=== PATIENT | female | born 1985 | race Caucasian/White ===

== ENCOUNTER → 2018-04-06 13:04 | Outpatient (CLI) | payer OTHER, SELFPAY ==
[2018-04-06 14:15] LABS: Absolute Lymphocyte Count 1.84 X10^3/ul (0.83-4.51); Basophil# 0.03 X10^3/uL; Basophil% 0.5 % (0-1); Eosinophil# 0.05 X10^3/uL; Eosinophils% 0.8 % (0-5); Hematocrit 38.4 % (37-47); Hemoglobin 12.8 g/dl (12.0-15.0); Lymphocyte # 1.84 X10^3/ul (4.0); Lymphocyte % 29.2 % (19-41); Mean Corp Hgb Conc 33.3 g/gl (32-36); Mean Corpuscular Hgb 30.4 pg (27.0-32.0); Mean Corpuscular Volume 91.2 fL (81-99); Mean Platelet Vol. 10.7 fl (6.2-12.0); Monocyte# 0.41 X10^3/uL; Monocyte% 6.5 % (0-10); Neutrophil # 3.98 X10^3/uL (2.7-7.7); Platelet Count 267 K/mm3 (150-450); RBC Distribution Width CV 12.8 % (11.6-14.6); RBC Distribution Width SD 42.6 fl (35.1-43.9); Red Blood Count 4.21 M/mm3 (4.2-5.4); White Blood Count 6.3 K/mm3 (4.4-11.0)
[2018-04-06 14:16] LABS: POSITIVE COUNT NO; POSITIVE DIFFERENTIAL NO; POSITIVE MORPHOLOGY NO
[2018-04-06 14:41] LABS: ALB/GLOB Ratio 1.3 RATIO (0.9-2.4); AST(SGOT) 13 U/L (15-37); Alanine Aminotransfer ALT/SGPT 17 U/L (13-56); Albumin, Serum 4.3 g/dL (3.2-5.0); Alkaline Phosphatase 48 U/L (45-117); Anion Gap 6 (5-15); BUN 9 mg/dL (7-18); BUN/Creat Ratio 11.4 RATIO (10-20); Calcium,Total 8.9 mg/dL (8.5-10.1); Chloride 107 mmol/L (98-107); Creatinine, Serum 0.79 mg/dL (0.55-1.02); EST Glomerular Filtration Rate 88 mL/min (>60); Est Glom Filt Rate - Afr Amer 107 mL/min (>60); Estradiol 51.4 pg/mL; Follicle Stimulating Hormone 5.8 mIU/mL; Globulin 3.2 g/dL (2.2-4.2); Glucose 89 mg/dL (74-106); Luteinizing Hormone 5.3 mIU/mL; Potassium 3.3 mmol/L (3.5-5.1); Prolactin 21.8 ng/mL; Protein, Total 7.5 g/dL (6.4-8.2); Sodium Level 140 mmol/L (136-145); T4 Free Direct 1.01 ng/dL (0.76-1.46); Thyroid Stim Hormone (TSH) 1.33 uIU/mL (0.358-3.74)
[2018-04-06 14:51] LABS: T3 Total - Triiodothyronine 0.92 ng/mL (0.6-1.81); Vitamin B12 897 pg/mL (211-911)
[2018-04-08 12:00] LABS: EBV Acute VCA IgM < 36.0 U/mL (0.0-35.9); EBV Early Antigen IgG <9.0 U/mL (0.0-8.9); EBV Nuclear Antigen IgG < 18.0 U/mL (0.0-17.9); EBV-VCA IgG < 18.0 U/mL (0.0-17.9)
== END ==
PROVIDERS: Family Provider Family Medicine; PCP Family Medicine; Visit Provider Family Medicine
DX: D35.2 Benign neoplasm of pituitary gland (principal); E55.9 Vitamin D deficiency, unspecified; E53.8 Deficiency of other specified B group vitamins; R53.83 Other fatigue; M79.1 Myalgia; M25.50 Pain in unspecified joint
CPT/HCPCS: 36415; 80053; 82306; 82607; 82670; 83001; 83002; 84144; 84146; 84439; 84443; 84480; 85025; 86663; 86664; 86665

== ENCOUNTER → 2018-04-09 07:44 | Outpatient (CLI) | payer OTHER, SELFPAY | PROVIDERS: Family Provider Family Medicine; PCP Family Medicine; Visit Provider Family Medicine | DX: E01.0 Iodine-deficiency related diffuse (endemic) goiter (principal) | CPT/HCPCS: 76536 ==

== ENCOUNTER → 2018-05-25 13:04 | Outpatient (CLI) | payer OTHER, SELFPAY ==
[2018-05-25 14:01] LABS: Erythrocyte Sedimentation Rate < 1 mm/hr (0-20)
[2018-05-25 14:34] LABS: CRP < 2.90 mg/L (0.0-3.0); Ferritin 59 ng/mL (8-252); Iron 86 ug/dL (50-170)
[2018-05-26 16:08] LABS: Endomysial Antibody IgA Negative (Negative)
[2018-05-27 11:35] LABS: ANTINUCLEAR ANTIBODIES DIRECT Negative (Negative)
[2018-05-27 11:50] LABS: Immunoglobulin A 176 mg/dL (87-352); t-Transglutaminase IgA 3 U/mL (0-3)
== END ==
PROVIDERS: Family Provider Family Medicine; PCP Family Medicine; Referring Provider Family Medicine; Visit Provider Family Medicine
DX: D64.9 Anemia, unspecified (principal); M25.50 Pain in unspecified joint; R10.9 Unspecified abdominal pain; M79.10 Myalgia, unspecified site
CPT/HCPCS: 36415; 82728; 82784; 83516; 83540; 85652; 86038; 86140; 86225; 86235; 86255

== ENCOUNTER → 2019-07-27 10:43 | Outpatient (CLI) | payer OTHER, SELFPAY ==
[2019-07-27 13:40] LABS: Absolute Lymphocyte Count 1.68 X10^3/uL (0.83-4.51); Absolute Neutrophil Count 4.4 X10^3/uL (2.0-7.7); Basophil# 0.07 X10^3/uL; Basophil% 1.1 % (0-1); Eosinophil# 0.08 X10^3/uL; Eosinophils% 1.2 % (0-5); Hematocrit 42.4 % (37-47); Hemoglobin 13.8 g/dL (12.0-15.0); Lymphocyte # 1.68 X10^3/ul (4.0); Lymphocyte % 25.6 % (19-41); Mean Corp Hgb Conc 32.5 g/dL (32-36); Mean Corpuscular Hgb 30.3 pg (27.0-32.0); Mean Corpuscular Volume 93.2 fL (81-99); Mean Platelet Vol. 10.3 fl (6.2-12.0); Monocyte# 0.38 X10^3/uL; Monocyte% 5.8 % (0-10); NRBC Flagged by Analyzer 0 % (0-5); Neutrophil # 4.36 X10^3/uL (2.7-7.7); Neutrophil % 66.3 % (47-70); Platelet Count 277 K/mm3 (150-450); RBC Distribution Width CV 12.4 % (11.6-14.6); RBC Distribution Width SD 42.6 fl (35.1-43.9); Red Blood Count 4.55 M/mm3 (4.2-5.4); White Blood Count 6.6 K/mm3 (4.4-11.0)
[2019-07-27 13:56] LABS: ALB/GLOB Ratio 1.3 RATIO (0.9-2.4); AST(SGOT) 15 U/L (15-37); Alanine Aminotransfer ALT/SGPT 18 U/L (13-56); Albumin, Serum 4.4 g/dL (3.2-5.0); Alkaline Phosphatase 57 U/L (45-117); Anion Gap 7 (5-15); BUN 9 mg/dL (7-18); BUN/Creat Ratio 11.8 RATIO (10-20); Calcium,Total 9.1 mg/dL (8.5-10.1); Chloride 108 mmol/L (98-107); Creatinine, Serum 0.76 mg/dL (0.55-1.02); EST Glomerular Filtration Rate 91 mL/min (>60); Est Glom Filt Rate - Afr Amer 110 mL/min (>60); Ferritin 49 ng/mL (8-252); Globulin 3.3 g/dL (2.2-4.2); Glucose 84 mg/dL (74-106); Potassium 3.8 mmol/L (3.5-5.1); Protein, Total 7.7 g/dL (6.4-8.2); Sodium Level 140 mmol/L (136-145)
[2019-07-27 14:47] LABS: Vitamin D,25 Hydroxy 42.1 ng/mL (29.95-100.01)
[2019-07-28 05:07] LABS: HEPATITIS B SURFACE AG Negative (Negative); Hepatitis A AB, Total Negative (Negative); Hepatitis A IgM Antibody Negative (Negative); Hepatitis B Core AB IgM Negative (Negative); Hepatitis B Core Ab Total Negative (Negative); Hepatitis C Ab <0.1 s/co ratio (0.0-0.9)
[2019-07-28 12:09] LABS: Hep B Surface Antibodies Reactive (.); Thyroid Peroxidase AB < 6 IU/mL (0-34)
== END ==
PROVIDERS: Family Provider Family Medicine; PCP Family Medicine; Referring Provider Dermatology Pediatric Dermatology; Visit Provider Dermatology Pediatric Dermatology
DX: L43.8 Other lichen planus (principal); L82.1 Other seborrheic keratosis; L81.4 Other melanin hyperpigmentation; D18.01 Hemangioma of skin and subcutaneous tissue; D22.5 Melanocytic nevi of trunk; L57.8 Other skin changes due to chronic exposure to nonionizing radiation; D22.71 Melanocytic nevi of right lower limb, including hip; L66.8 Other cicatricial alopecia; Z71.89 Other specified counseling
CPT/HCPCS: 36415; 80053; 82306; 82728; 85025; 86038; 86376; 86704; 86705; 86706; 86708; 86709; 86803; 87340

== ENCOUNTER → 2019-09-06 12:59 | Outpatient (CLI) | payer OTHER, SELFPAY | PROVIDERS: Family Provider Family Medicine; PCP Family Medicine; Referring Provider Dermatology Pediatric Dermatology; Visit Provider Dermatology Pediatric Dermatology | DX: R76.0 Raised antibody titer (principal) | CPT/HCPCS: 36415; 86038 ==

== ENCOUNTER → 2019-09-23 | Outpatient (CLI) | payer OTHER, SELFPAY ==
[2019-09-23 15:58] LABS: CRP < 2.90 mg/L (0.0-3.0)
[2019-09-23 16:21] LABS: Erythrocyte Sedimentation Rate < 1 mm/hr (0-20)
[2019-09-26 15:12] LABS: CCP IgG Antibodies 10 units (0-19)
[2019-09-27 20:08] LABS: SJOGREN'S Anti-SS-A test < 0.2 AI (0.0-0.9)
[2019-09-27 21:06] LABS: SJOGREN'S Anti-SS-B test < 0.2 AI (0.0-0.9)
== END | disposition home or self-care (01) ==
LOC: BFHLAB 13:05
PROVIDERS: PCP Family Medicine; Visit Provider Family Medicine
DX: M79.10 Myalgia, unspecified site (principal); R76.8 Other specified abnormal immunological findings in serum; M25.50 Pain in unspecified joint
CPT/HCPCS: 36415; 85652; 86140; 86200; 86235

== ENCOUNTER → 2019-11-26 11:13 | Outpatient (CLI) | payer OTHER, SELFPAY ==
--- NOTE | 2019-11-26 11:20 | RAD_ITS ---
STUDY: X-RAY - CERVICAL SPINE REASON FOR EXAM: Female, 34 years old. Neck pain, discomfort, arm heaviness for several months TECHNIQUE: 5 view(s) of the cervical spine were obtained including oblique views. COMPARISON: None FINDINGS: Normal anterior atlantoaxial articulation. Normal odontoid process. There is straightening of the normal cervical lordosis. Normal vertebral bodies and endplates. Normal disc space heights. Normal visualized intervertebral neuroforamina. The soft tissue structures are unremarkable. RAD/Cerv Spine 4 or 5 Views IMPRESSION: Straightening of the normal cervical lordosis. Electronically Signed: Yahir Douglas, at 13:22 EDT , Service support ,
[2019-11-26 12:01] LABS: Bacteria 0 SEEN /hpf (None Seen); Mucous, Urine 0 SEEN /hpf (<or=2+); Red Blood Cells-Urine 0 SEEN /hpf (0-5); White Blood Cells 0 SEEN /hpf (0-5)
[2019-11-26 15:23] LABS: Color, Urine Yellow (Yellow); Glucose, Dipstick Normal (Normal); Ketone-Dipstick Negative (Negative); Leukocyte Esterase-Dipstick 100 /ul (Negative); Nitrite-Dipstick Negative (Negative); Occult Blood-Urine Negative /ul (Negative); Protein-Dipstick Negative (Negative); Specific Gravity, Urine 1.005 (1.002-1.030); Urine Bilirubin Dipstick Negative (Negative); Urine Clarity Clear (Clear); Urine Urobilinogen Normal (Normal)
[2019-11-26 15:33] LABS: Vitamin B12 818 pg/mL (211-911); Vitamin D,25 Hydroxy 46.1 ng/mL
[2019-11-26 15:50] LABS: Bilirubin, Direct 0.24 mg/dL (0.00-0.30); CPK Total, Creatine Kinase 60 U/L (26-192); CRP < 2.90 mg/L (0.0-3.0); Rheumatoid Factor < 10.0 IU/mL (<15); Thyroid Stim Hormone (TSH) 2.01 uIU/mL (0.358-3.74); Uric Acid 3.2 mg/dL (2.6-6.0)
[2019-11-26 16:26] LABS: Squamous Epithelial Cells - UA 0-5 SEEN /hpf (5-10)
[2019-11-30 12:06] LABS: Vitamin D 1,25-Dihydroxy 68.2 pg/mL (19.9-79.3)
[2019-11-30 17:36] LABS: ANTINUCLEAR ANTIBODIES DIRECT Negative (Negative); Anti-Mitochondrial AB <20.0 Units (0.0-20.0)
== END ==
PROVIDERS: PCP Family Medicine; Referring Provider Internal Medicine Rheumatology; Visit Provider Internal Medicine Rheumatology
DX: M54.2 Cervicalgia (principal); R00.2 Palpitations; R00.0 Tachycardia, unspecified; M89.9 Disorder of bone, unspecified; M94.9 Disorder of cartilage, unspecified; N39.0 Urinary tract infection, site not specified; L65.9 Nonscarring hair loss, unspecified; R53.83 Other fatigue; F41.9 Anxiety disorder, unspecified; R17 Unspecified jaundice; R76.8 Other specified abnormal immunological findings in serum; Z79.1 Long term (current) use of non-steroidal anti-inflammatories (NSAID); Z79.2 Long term (current) use of antibiotics; Z86.69 Personal history of other diseases of the nervous system and sense organs
CPT/HCPCS: 36415; 72050; 81001; 82164; 82247; 82248; 82306; 82384; 82550; 82607; 82652; 82747; 82784; 83516; 84165; 84425; 84443; 84550; 85014; 86038; 86140; 86160; 86200; 86225; 86235; 86334; 86431; 86617; 86644; 86645; 86664; 86665; 86747; 87086

== ENCOUNTER → 2019-12-01 | Outpatient (CLI) | payer OTHER, SELFPAY ==
[2019-12-03 16:07] LABS: Folate, RBC (Hct) Test 37.9 % (34.0-46.6)
[2019-12-04 14:39] LABS: Folates, RBC Test 1103 ng/mL (>498)
== END | disposition home or self-care (01) ==
LOC: MTLAB 14:10
PROVIDERS: PCP Family Medicine; Referring Provider Internal Medicine Rheumatology; Visit Provider Internal Medicine Rheumatology
DX: R00.2 Palpitations (principal); R00.0 Tachycardia, unspecified; M54.2 Cervicalgia; M89.9 Disorder of bone, unspecified; M94.9 Disorder of cartilage, unspecified; N39.0 Urinary tract infection, site not specified; L65.9 Nonscarring hair loss, unspecified; R53.83 Other fatigue; F41.9 Anxiety disorder, unspecified; R17 Unspecified jaundice; R76.8 Other specified abnormal immunological findings in serum; Z86.69 Personal history of other diseases of the nervous system and sense organs; Z79.2 Long term (current) use of antibiotics; Z79.1 Long term (current) use of non-steroidal anti-inflammatories (NSAID)
CPT/HCPCS: 82747; 85014

== ENCOUNTER → 2019-12-06 | Outpatient (CLI) | payer OTHER, SELFPAY ==
[2019-12-08 03:06] LABS: Dopamine, UR 134 ug/L (Undefined); Epinephrine, 24Ur 7 ug/24 hr (0-20); Epinephrine, Ur 3 ug/L (Undefined); Norepinephrine, 24Ur 70 ug/24 hr (0-135); Norepinephrine, Ur 32 ug/L (Undefined)
[2019-12-08 03:50] LABS: Dopamine, 24Ur 295 ug/24 hr (0-510)
[2019-12-08 23:16] LABS: 5-HIAA, 24UR 3.8; 5-HIAA, UR 1.6
== END | disposition home or self-care (01) ==
LOC: MTLAB 08:46
PROVIDERS: PCP Family Medicine; Referring Provider Internal Medicine Rheumatology; Visit Provider Internal Medicine Rheumatology
DX: N39.0 Urinary tract infection, site not specified (principal); R00.2 Palpitations; R00.0 Tachycardia, unspecified; M54.2 Cervicalgia; M89.9 Disorder of bone, unspecified; M94.9 Disorder of cartilage, unspecified; L65.9 Nonscarring hair loss, unspecified; R53.83 Other fatigue; F41.9 Anxiety disorder, unspecified; R17 Unspecified jaundice; R76.8 Other specified abnormal immunological findings in serum; Z86.69 Personal history of other diseases of the nervous system and sense organs; Z79.2 Long term (current) use of antibiotics; Z79.1 Long term (current) use of non-steroidal anti-inflammatories (NSAID)
CPT/HCPCS: 81050; 82384; 83497; 84120

== ENCOUNTER → 2019-12-09 | Outpatient (CLI) | payer OTHER, SELFPAY ==
--- NOTE | 2019-12-09 08:26 | US_ITS ---
STUDY: ABDOMINAL ULTRASOUND - RIGHT UPPER QUADRANT REASON FOR VISIT: Female, 34 years old abnl labs TECHNIQUE: Ultrasound evaluation of the right upper quadrant was performed with real-time and static haq-scale imaging. TECHNICAL QUALITY: Adequate. COMPARISON: None. FINDINGS: Liver: The liver measures 13.3 cm. There is normal echogenicity of the liver. The bile ducts are within normal limits. There is hepatic color flow. The direction of portal flow is hepatopetal. There is no demonstrated mass lesion. Gallbladder: Normal distended gallbladder. The gallbladder wall measures 2.1 mm. There is a negative sonographic Ryan''s sign. There is no pericholecystic fluid. There are no gallstones. Common Bile Duct (C.B.D.): The common bile duct measures 2.2 mm. Pancreas: Normal size of the head, body and tail of the pancreas. There is normal echogenicity of the pancreas. There is no demonstrated pancreatic mass or cyst. Right Kidney: Normal size of the right kidney. The right kidney measures 10 x 5 x 3.7 cm. Normal renal cortex. The right cortex measures 1.4 cm. There is no demonstrated renal mass or cyst. There is no right hydronephrosis. US/Abdomen Limited IMPRESSION: Normal right upper quadrant ultrasound examination. Electronically Signed: Li Keating, at 14:45 EDT Tel , Service support ,
== END | disposition home or self-care (01) ==
LOC: US 08:23
PROVIDERS: PCP Family Medicine; Referring Provider Internal Medicine Rheumatology; Visit Provider Internal Medicine Rheumatology
DX: R17 Unspecified jaundice (principal); R76.8 Other specified abnormal immunological findings in serum; R00.2 Palpitations; R00.0 Tachycardia, unspecified; M54.2 Cervicalgia; M89.9 Disorder of bone, unspecified; M94.9 Disorder of cartilage, unspecified; N39.0 Urinary tract infection, site not specified; L65.9 Nonscarring hair loss, unspecified; R53.83 Other fatigue; F41.9 Anxiety disorder, unspecified; Z86.69 Personal history of other diseases of the nervous system and sense organs; Z79.2 Long term (current) use of antibiotics; Z79.1 Long term (current) use of non-steroidal anti-inflammatories (NSAID)
CPT/HCPCS: 76705

== ENCOUNTER → 2020-02-10 | Outpatient (CLI) | payer OTHER, SELFPAY ==
[2020-01-07 11:10] VITALS: BMI 20.9
--- NOTE | 2020-02-10 09:28 | ECHOD_ITS ---
Reason For Study: PALPITATIONS Procedure This was a 2D Doppler, Color Flow transthoracic echocardiogram. Exam performed in department. Left Ventricle Normal LV size. Left ventricular systolic function is normal. The estimated ejection fraction is 60 %. Normal diastology for age. No regional wall motion abnormalities noted. Atria Normal left atrium. Normal right atrium. Mitral Valve Equivocal mitral valve prolapse. Tricuspid Valve Normal tricuspid valve. Mild (1+) tricuspid valve insufficiency. Pulmonary artery systolic pressure is 24 mmHg. Aortic Valve Normal aortic valve. Trisinus/trileaflet aortic valve. Pulmonic Valve Normal pulmonic valve. Great Vessels Normal aortic root. The pulmonary artery is normal size. Inferior vena cava collapse with respiration. Pericardium/Pleural No pericardial effusion. MMode/2D Measurements & Calculations LVIDd: 4.9 cm IVSd: 0.72 cm Ao root diam: 3.1 cm LVIDs: 3.6 cm LVPWd: 1.0 cm RVDd: 2.4 cm FS: 27.2 % LAV(MOD-bp): 42.5 ml LA A4 area: 15.2 cm2 LA dimension(2D): 2.9 cm LAV(MOD-bp) Indexed: 24.9 ml/m2 LAV(MOD-sp2): 40.4 ml LAV(MOD-sp4): 37.1 ml RA A4 area: 8.8 cm2 Doppler Measurements & Calculations MV E max memo: 77.7 cm/sec Lat Peak E' Memo: 13.7 cm/sec Med Peak E' Memo: 10.0 cm/sec MV A max memo: 59.0 cm/sec E/E' lat: 5.7 E/E' med: 7.8 MV E/A: 1.3 Ao V2 max: 108.0 cm/sec LV V1 max: 99.6 cm/sec PA V2 max: 112.4 cm/sec Ao max P.7 mmHg LV V1 max P.0 mmHg TR max memo: 228.4 cm/sec TR max P.9 mmHg Interpretation Summary Normal LV size. Left ventricular systolic function is normal. The estimated ejection fraction is 60 %. Equivocal mitral valve prolapse. Ordering Physician: Gilbert Hamilton Referring Physician: Lala Schuster Performed By: Zoë Shaw, [place], RVT
== END | disposition home or self-care (01) ==
PROVIDERS: PCP Family Medicine; Referring Provider Internal Medicine Cardiovascular Disease; Visit Provider Internal Medicine Cardiovascular Disease
DX: R00.2 Palpitations (principal)
CPT/HCPCS: 93306

== ENCOUNTER 2020-06-22 13:09 | Outpatient (RCR) | payer OTHER, SELFPAY ==
[2020-03-16 10:20] VITALS: BMI 20.9
== END 2020-06-24 23:59 ==
LOC: LABSPEC 13:09
PROVIDERS: PCP Family Medicine; Visit Provider Family Medicine Geriatric Medicine
DX: Z03.818 Encounter for observation for suspected exposure to other biological agents ruled out (principal)
CPT/HCPCS: 87426

== ENCOUNTER → 2020-06-22 | Outpatient (CLI) | payer OTHER, SELFPAY ==
[2020-06-22 09:20] VITALS: BMI 21.1
[2020-06-22 13:16] LABS: CPK Total, Creatine Kinase 47 U/L (26-192)
[2020-06-23 16:25] LABS: Myoglobin, Serum < 21 ng/mL (25-58)
== END | disposition home or self-care (01) ==
LOC: LAB 10:37
PROVIDERS: Nurse Practitioner Family; PCP Family Medicine; Referring Provider Psychiatry & Neurology Neurology; Visit Provider Psychiatry & Neurology Neurology
DX: M79.10 Myalgia, unspecified site (principal); R25.3 Fasciculation; E22.1 Hyperprolactinemia
CPT/HCPCS: 36415; 82085; 82550; 83874; 84146

== ENCOUNTER → 2020-07-06 09:25 | Outpatient (CLI) | payer OTHER, SELFPAY ==
[2020-06-22 09:20] VITALS: BMI 21.1
--- NOTE | 2020-07-06 09:28 | MRI_ITS ---
STUDY: MRI BRAIN WITH AND WITHOUT CONTRAST (ATTENTION PITUITARY GLAND) REASON FOR EXAM: Female, 34 years old. hyperprolactinemia, follow up, prev mri 2011 TECHNIQUE: Standardized multiplanar fat and water weighted pulse sequences were obtained. IV Dotarem 15ml was administered for the contrast portion of the examination. COMPARISON: 01/29/2012 FINDINGS: Normal size of the pituitary gland for the patient?s age and gender. Normal enhancement of the pituitary gland, without a demonstrated intrapituitary lesion. Normal infundibular stalk and suprasellar cistern. Normal optic chiasm and hypothalamus. Normal size of the ventricles and extra-axial spaces for the patient''s age. Normal white matter tracts of the supratentorial brain. There is no evidence for recent intracranial ischemia or other cause of cytotoxic edema on diffusion weighted imaging (DWI). Normal bilateral basal ganglia. Normal thalami. Normal flow voids within the major intracranial circulation suggesting patency by spin echo criteria. Normal venous enhancement. There is no enhancing intra-axial or extra-axial abnormality. There is no extra-axial fluid accumulation. Normal tectal plate and pineal gland. Normal midbrain, jordon and medulla. Normal cerebellum. Normal basal cisterns. 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 Normal bilateral internal auditory canals. No demonstrated orbital abnormality, within the constraints of a routine brain study. Normal visualized paranasal sinuses. Normal calvarium and skull base. Normal visualized upper cervical spine. Normal visualized soft tissue structures. MRI/Brain W/WO Contrast IMPRESSION: Normal unenhanced and enhanced MRI of the pituitary gland. Electronically Signed: Fazal Nowak MD at 13:55 EST Tel , Service support ,
== END ==
PROVIDERS: PCP Family Medicine; Referring Provider Nurse Practitioner Family; Visit Provider Nurse Practitioner Family
DX: E22.1 Hyperprolactinemia (principal)
CPT/HCPCS: 70553; A9575

== ENCOUNTER → 2020-08-24 08:52 | Outpatient (CLI) | payer OTHER, SELFPAY ==
[2020-06-22 09:20] VITALS: BMI 21.1
--- NOTE | 2020-08-24 08:55 | RAD_ITS ---
STUDY: X-RAY - LUMBAR SPINE REASON FOR EXAM: Female, 34 years old. low back pain, left hip pain, patient states she feels her left hip is weak TECHNIQUE: 3 view(s) of the lumbar spine were obtained. COMPARISON: None FINDINGS: Normal lumbar lordosis. There is no substantial scoliosis. There is a normal alignment of the vertebrae. Normal vertebral bodies and endplates. Normal disc space heights. The soft tissue structures are unremarkable. RAD/Lumbar Spine 2 or 3 Views IMPRESSION: Normal x-ray examination of the lumbar spine. Electronically Signed: Li Keating, at 10:36 EST Tel , Service support ,
== END ==
PROVIDERS: PCP Family Medicine; Referring Provider Psychiatry & Neurology Neurology; Visit Provider Psychiatry & Neurology Neurology
DX: M54.5 Low back pain (principal)
CPT/HCPCS: 72100

== ENCOUNTER 2020-12-19 09:07 | Outpatient (RCR) | payer OTHER, SELFPAY ==
[2020-11-19 12:56] VITALS: BMI 20.3
== END 2020-12-22 23:59 ==
LOC: EMPH 09:07
PROVIDERS: PCP Family Medicine; Visit Provider Family Medicine Geriatric Medicine
DX: Z03.818 Encounter for observation for suspected exposure to other biological agents ruled out (principal)
CPT/HCPCS: 87426

== ENCOUNTER 2021-03-30 15:03 | Outpatient (RCR) | payer OTHER, SELFPAY ==
[2020-11-19 12:56] VITALS: BMI 20.3
== END 2021-04-24 23:59 ==
LOC: EMPH 15:03
PROVIDERS: PCP Family Medicine; Visit Provider Family Medicine Geriatric Medicine
DX: Z03.818 Encounter for observation for suspected exposure to other biological agents ruled out (principal)
CPT/HCPCS: 87426

== ENCOUNTER 2021-07-20 11:48 | Outpatient (RCR) | payer OTHER, SELFPAY ==
[2021-04-25 00:13] VITALS: BMI 20.3
== END 2021-07-24 23:59 ==
LOC: EMPH 11:48
PROVIDERS: PCP Family Medicine; Visit Provider Family Medicine Geriatric Medicine
DX: Z03.818 Encounter for observation for suspected exposure to other biological agents ruled out (principal)
CPT/HCPCS: 87426

== ENCOUNTER 2021-08-16 12:42 | Outpatient (RCR) | payer OTHER, SELFPAY ==
[2021-07-25 00:04] VITALS: BMI 20.3
== END 2021-08-24 23:59 ==
LOC: EMPH 12:42
PROVIDERS: PCP Family Medicine; Visit Provider Family Medicine Geriatric Medicine
DX: Z03.818 Encounter for observation for suspected exposure to other biological agents ruled out (principal)
CPT/HCPCS: 87426

== ENCOUNTER → 2023-11-21 | Outpatient (CLI) | payer OTHER, SELFPAY ==
--- NOTE | 2023-11-21 08:28 | BI_ITS ---
MAMMOGRAPHY - BILATERAL SCREENING REASON FOR EXAM: Female, 38 years old. Routine annual screening examination. PERTINENT HISTORY: Grandmother with breast cancer. Aunts with breast cancer. TECHNIQUE: Digital bilateral breast rosaura (3D mammographic acquisition) in the CC and MLO projections. 2-D mediolateral oblique (MLO) and craniocaudad (CC) views of both breasts were obtained. CAD: Full Field Digital Mammography with Computer Added Detection was performed. COMPARISON: None. Baseline examination. FINDINGS: Breast Composition: The breasts are extremely dense, which lowers the sensitivity of mammography. There are no dominant masses or suspicious calcifications. No other significant abnormalities are identified. BI/SCRN MAMM (CAD)W/ROSAURA BILAT IMPRESSION: Negative screening mammogram. Yearly followup mammogram recommended. (A) ASSESSMENT CATEGORY: BIRADS Category 1: Negative. A letter regarding these results will be sent to the patient by the facility within 30 days. Approximately 10% of breast cancers are not detected by mammography. A normal mammogram should not delay biopsy of a clinically suspicious abnormality. [id number] Electronically Signed: Yahir Douglas MD at 9:21 EDT ,
== END | disposition home or self-care (01) ==
LOC: OPBI 08:27
PROVIDERS: PCP Family Medicine; Referring Provider Obstetrics & Gynecology; Visit Provider Obstetrics & Gynecology
DX: Z12.31 Encounter for screening mammogram for malignant neoplasm of breast (principal)
CPT/HCPCS: 77063; 77067

== ENCOUNTER → 2023-12-15 | Outpatient (CLI) | payer OTHER, SELFPAY ==
[2023-12-15 12:10] LABS: Absolute Lymphocyte Count 1.77 X10^3/uL (0.83-4.51); Absolute Neutrophil Count 4.8 X10^3/uL (2.0-7.7); Basophil# 0.09 X10^3/uL; Basophil% 1.3 % (0-1); Eosinophil# 0.07 X10^3/uL; Hematocrit 40.3 % (37-47); Hemoglobin 13.3 g/dL (12.0-15.0); Lymphocyte # 1.77 X10^3/ul (0.83-4.51); Lymphocyte % 24.7 % (19-41); Monocyte# 0.42 X10^3/uL; Monocyte% 5.9 % (0-10); NRBC Flagged by Analyzer 0 % (0-5); Neutrophil # 4.81 X10^3/uL (2.7-7.7); Platelet Count 320 K/mm3 (150-450); RBC Distribution Width CV 12.7 % (11.6-14.6); RBC Distribution Width SD 42.1 fl (35.1-43.9); Red Blood Count 4.43 M/mm3 (4.2-5.4); White Blood Count 7.2 K/mm3 (4.4-11.0)
[2023-12-15 12:35] LABS: ALB/GLOB Ratio 1.1 RATIO (0.9-2.4); AST(SGOT) 10 U/L (15-37); Alanine Aminotransfer ALT/SGPT 16 U/L (13-56); Albumin, Serum 3.9 g/dL (3.2-5.0); Alkaline Phosphatase 55 U/L (45-117); Anion Gap 6 (5-15); BUN 11 mg/dL (7-18); BUN/Creat Ratio 16.2 RATIO (10-20); Calcium,Total 9.3 mg/dL (8.5-10.1); Chloride 109 mmol/L (98-107); Cholesterol 157 mg/dL (200); Creatinine, Serum 0.68 mg/dL (0.55-1.02); EST Glomerular Filtration Rate 102 mL/min (>60); Est Glom Filt Rate - Afr Amer 124 mL/min (>60); Free T3 2.5 pg/mL (2.18-3.98); Globulin 3.4 g/dL (2.2-4.2); Glucose 96 mg/dL (74-106); High Density Lipoprotein 65 mg/dL; Potassium 3.9 mmol/L (3.5-5.1); Protein, Total 7.3 g/dL (6.4-8.2); Sodium Level 139 mmol/L (136-145); T4 Free Direct 0.99 ng/dL (0.76-1.46); Triglycerides 66 mg/dL; Very Low Density Lipoprotein 13 mg/dL (5-40)
[2023-12-16 15:23] LABS: Thyroid Stim Hormone (TSH) 1.68 uIU/mL (0.358-3.74)
== END | disposition home or self-care (01) ==
LOC: BFHLAB 10:33
PROVIDERS: PCP Family Medicine; Referring Provider Family Medicine; Visit Provider Family Medicine
DX: Z00.00 Encounter for general adult medical examination without abnormal findings (principal); E03.9 Hypothyroidism, unspecified; Z51.81 Encounter for therapeutic drug level monitoring
CPT/HCPCS: 36415; 80053; 80061; 84439; 84443; 84481; 85025

== ENCOUNTER → 2024-11-23 | Outpatient (CLI) | payer OTHER, SELFPAY ==
--- NOTE | 2024-11-23 08:41 | BI_ITS ---
EXAM: SCRN MAMM (CAD)W/ROSAURA BILAT DATE: 11/23/2024 CLINICAL HISTORY: F, Age 39 y/o , SCREENING Grandmother with breast cancer. Aunts with breast cancer. BREAST CANCER RISK ASSESSMENT: Not assessed. TECHNIQUE: Bilateral screening digital breast tomosynthesis with 2D and 3D images. Computer aided detection. COMPARISON: Baseline examination. FINDINGS: TISSUE DENSITY: The breast tissue is extremely dense which lowers the sensitivity of mammography. Bilateral Breast Mammographic Findings: No significant masses, calcifications or other abnormalities are identified. BI/SCRN MAMM (CAD)W/ROSAURA BILAT IMPRESSION: Right Breast: BIRADS 1 NEGATIVE. Left Breast: BIRADS 1 NEGATIVE. OVERALL FINAL ASSESSMENT: BIRADS 1 NEGATIVE RECOMMENDATION: Routine annual follow-up in 1 Year A letter with findings and recommendations will be mailed to the patient. Reading Location: [id number]
== END | disposition home or self-care (01) ==
LOC: OPBI 08:39
PROVIDERS: PCP Family Medicine; Referring Provider Obstetrics & Gynecology; Visit Provider Obstetrics & Gynecology
DX: Z12.31 Encounter for screening mammogram for malignant neoplasm of breast (principal)
CPT/HCPCS: 77063; 77067